=== PATIENT | male | born 1950 | race Caucasian/White ===

== ENCOUNTER 2018-06-27 07:12 | Observation (INO) | payer OTHER ==
[~2018-06-27 07:12] MED LIST: TRANEXAMIC ACID 1,000 MG in NS 100 ML IV ONE
[2018-06-27] MEDS ORDERED: ceFAZolin 2 GM/DEXTROSE 100 ML IV ONE (07:35)
[2018-06-27] MEDS ORDERED: ACETAMINOPHEN 500 MG TAB PO ONE (07:35)
[2018-06-27] MEDS ORDERED: GABAPENTIN 300 MG CAP PO ONE (07:35)
[2018-06-27] MEDS ORDERED: LR 1,000 ML IV ONE (07:36)
[2018-06-27] MEDS ORDERED: fentaNYL 250 MCG/5 ML INJ ONE (08:00)
[2018-06-27] MEDS ORDERED: PROPOFOL/EMULSION 500 MG/50 ML BOTTLE IV ONE (08:03)
[2018-06-27] MEDS ORDERED: SURGIFLO MATRIX KIT WITH THROMBIN 8 ML TP ONE (08:09)
[2018-06-27] MEDS ORDERED: BUPIVACAINE/EPI 0.5% 30 ML SDV ONE (08:10)
[2018-06-27] MEDS ORDERED: VANCOMYCIN 1 GM VIAL ONE (08:10)
[2018-06-27] MEDS ORDERED: BACITRACIN 50,000 UNITS/10 ML SYR IRR ONE (08:10)
[2018-06-27] MEDS ORDERED: MIDAZOLAM 2 MG/2 ML VIAL IVP ONE (08:11)
[2018-06-27 08:35] LABS: PLATELET COUNT 218 10^3/uL (150-400)
[2018-06-27] MEDS ORDERED: LABETALOL HCL 5 MG/ML 20 ML MDV IVP PRN (10:00)
[2018-06-27] MEDS ORDERED: ONDANSETRON 4 MG/2 ML VIAL IVP PRN ×2 (10:00→16:57)
[2018-06-27] MEDS ORDERED: DEXAMETHASONE 4 MG/ML VIAL IVP PRN (10:00)
[2018-06-27] MEDS ORDERED: ALBUTEROL 3 ML DEYVIAL IH PRN (10:00)
[2018-06-27] MEDS ORDERED: NALOXONE HCL 0.4 MG/ML INJ IVP PRN (10:00)
[2018-06-27] MEDS ORDERED: DIAZEPAM 5 MG/ML 1 ML SYR IVP PRN (10:00)
[2018-06-27] MEDS ORDERED: MEPERIDINE 25 MG/0.5 ML AMP IVP PRN (10:00)
[2018-06-27] MEDS ORDERED: HYDROmorphONE/DILAUDID 2 MG/ML INJ IVP PRN (10:00)
[2018-06-27] MEDS ORDERED: fentaNYL 100 MCG/2 ML INJ IVP PRN (10:00)
--- NOTE | 2018-06-27 10:07 | PDANEPAE ---
ANE Past Medical History - Cardiovascular History Hx Hypertension: Yes Hx Arrhythmias: No Hx Chest Pain: No Hx Coronary Artery / Peripheral Vascular Disease: Yes Hx CHF / Valvular Disease: No Hx Palpitations: No - Pulmonary History Hx COPD: No Hx Asthma/Reactive Airway Disease: No Hx Recent Upper Respiratory Infection: No Hx Oxygen in Use at Home: No Hx Sleep Apnea: No Sleep Apnea Screening Result - Last Documented: Positive - Neurologic History Hx Cerebrovascular Accident: No Hx Seizures: No Hx Dementia: No - Endocrine History Hx Diabetes: No - Renal History Hx Renal Disorders: Yes Renal History Comment: NOCTURIA - Liver History Hx Hepatic Disorders: No - Neurological & Psychiatric Hx Hx Neurological and Psychiatric Disorders: No - Cancer History Hx Cancer: No - Congenital Disorder History Hx Congenital Disorders: No - GI History Hx Gastrointestinal Disorders: No - Other Health History Other Health History: SPINAL STENOSIS. JANAY LE N/T. RT LEG WEAKNESS - Chronic Pain History Chronic Pain: Yes (LOWER LUMBAR) - Surgical History Prior Surgeries: 03/2017 LT SHLDR REPLACEMENT. RT KNEE SCOPE 2010. RT TOTAL HIP. TONSILLECTOMY. JANAY KNEE PATELLA TENDON ANE Review of Systems Review of Systems: - Exercise capacity METS (RN): 4 METS ANE Patient History - Allergies Allergies/Adverse Reactions: morphine Allergy (Verified 06/25/18 15:38) SUPRESSED RESPIRATIONS - Home Medications Home Medications: Acid Substation Electrician Supervisor HS 06/25/18 [Last Taken 1 Week Ago ~06/20/18] Lisinopril DAILY 06/25/18 [Last Taken 06/25/18] Aspirin 06/27/18 [Last Taken 1 Week Ago ~06/20/18] Multivitamins 06/27/18 [Last Taken 1 Week Ago ~06/20/18] - NPO status NPO Since - Liquids (Date): 06/26/18 NPO Since - Liquids (Time): 21:00 NPO Since - Solids (Date): 06/26/18 NPO Since - Solids (Time): 20:00 - Smoking Hx Smoking Status: Never smoked - Family Anes Hx Family Hx Anesthesia Complications: FATHER DEVELOPED DEMENTIA POST ANESTHESIA AGE 68 ANE Labs/Vital Signs - Labs Result Diagrams: 06/27/18 08:23 - Vital Signs Blood Pressure: 127/88 Heart Rate: 65 Respiratory Rate: 18 O2 Sat (%): 93 Height: 177.8 cm Weight: 79.379 kg ANE Physical Exam - Airway Neck exam: FROM Mallampati Score: Class 2 Mouth exam: normal dental/mouth exam - Pulmonary Pulmonary: no respiratory distress, clear to auscultation - Cardiovascular Cardiovascular: regular rate and rhythym, no murmur, rub, or gallop - ASA Status ASA Status: II ANE Anesthesia Plan Anesthesia Plan: general endotracheal anesthesia
[2018-06-27] MEDS ORDERED: RANITIDINE 50 MG/2 ML VIAL ONE (10:11)
[2018-06-27] MEDS ORDERED: ONDANSETRON 4 MG/2 ML VIAL ONE ×2 (10:11→13:56)
[2018-06-27] MEDS ORDERED: ePHEDrine SULFATE 25 MG/5 ML SYR ONE (10:12)
[2018-06-27] MEDS ORDERED: SUCCINYLCHOLINE CHLORIDE 200 MG/10 ML SYR IVP ONE (10:12)
[2018-06-27] MEDS ORDERED: KETOROLAC 30 MG/1 ML SDV ONE (10:24)
--- NOTE | 2018-06-27 10:45 | SUROPNOTE ---
[facility] Operative Report - Surgery Date: 06/27/18 Pre-operative Diagnosis: Lumbar Spinal Stenosis Post-operative Diagnosis: Same Procedure: Rt L2/3 Minimally Invasive Lumbar Real-laminectomy and Bilateral Decompression Use of a surgical microscope Use of intraoperative neuromonitoring, including EMG, SSEP, and MEP modalities Surgeon: Moshe Potter MD Escapement Maker: Chantale Snell CST Anesthesia: General endotracheal anesthesia Findings: As expected lumbar spinal stenosis Estimated Blood Loss: 10mL Drains: None Specimens: None Complications: None Condition: Transferred to PACU in stable condition. Implants: None Indications: This patient was seen in my office and diagnosed with lumbar spinal stenosis. I have explained all options of treatment for the patient, and the patient has elected to proceed with operative management. I have explained all risks, benefits, and alternatives of the proposed procedure. The risks that we have discussed include , blindness, nerve damage, infection, dural tear, failure of surgery to alleviate pre-operative symptoms, possible to conversion to an open decompression, and possible need for further operation. In addition to the aforementioned procedure, I also discussed with the patient that other procedures may be indicated during the course of surgery that would be considered in the patients best interest. The patient expressed understanding of this. Pre-operative: The proposed incision site was marked in the pre-operative holding area by me. The patient was then taken to the operating room in stable condition. Following smooth induction of general anesthesia, the patient was positioned prone on a Rashad table in mild reverse Trendelenburg with all down surfaces well-padded. The patient was then prepped and draped in the usual sterile fashion. Pre- operative antibiotics were administered within one hour of the incision. A surgical timeout was performed, and all parties involved in the procedure were in agreement on the correct patient, location, and procedure to be performed. Level identification: The proposed L2 and L3 levels were identified using C-arm fluoroscopy and the skin was marked for the proposed incision. Based on pre-operative templating, a spinal needle was inserted under fluoroscopic guidance to the level of the decompression to be performed, 1.5cm from midline on the patients right side. Following radiographic confirmation of proposed endoscopic trajectory, a 25mm longitudinal incision was made through both the skin and fascia in an expected trajectory. Electrocautery was used to coagulate any bleeding vessels identified above the level of the fascia. A blunt probe was then passed through the fascial incision and docked on the lateral pars of the proposed level of dissection. Serial dilation was then performed, up to a size that would accommodate placement of a Metrx decompression tube. A sterile articulating arm was then attached to the table and affixed to the tube. Proper trajectory was again confirmed by lateral radiograph. The tube was docked on the caudal aspect of the cephalad level. Decompression: A high-speed brina was used to perform a hemilaminectomy of both the level cephalad and caudal to be decompressed. A partial facetectomy was performed at this level to allow for proper decompression, involving less than one-third of the medial facet at this level. The ligamentum flavum was left intact as a buffer to protect the dura while the ventral spinal process and contralateral lamina using a high-speed brina. At this time the ligamentum flavum was elevated from the dura using blunt dissectors and resected using Kerrison rongeurs. The contralateral lateral recess and foramina were identified and decompressed in a similar fashion. A Morillo ball probe was used to ensure thorough decompression of both the exiting and traversing nerve root on both sides. At this time, a ball probe was used to probe all foraminae at the affected levels. Where necessary, a small Kerrison rongeur was used to decompress remaining bone and soft tissue so that all nerve roots would traverse freely through the foraminae. Closure: The surgical field was then copiously irrigated with sterile saline. Based on the amount of oozing and tenuous dura, a small amount of duraseal was applied to the surgical field before initiation of closure. #1 braided and absorbable interrupted sutures were used to repair the spinous processes and interspinous ligaments. There was good bony apposition noted between all repaired spinous processes. Then 2-0 interrupted sutures were used to repair the dermal layer, and a separate 3-0 monofilament suture was used to repair the subcutaneous layer in a running fashion. All sutures used were absorbable. Topical adhesive was then applied to the skin and allowed to dry. A sterile island dressing was applied over the surgical incision. A surgical count was performed before initiation of closure and following the procedure, and all were correct. I was present for all critical portions of the procedure. Surgical microscope use: A surgical microscope was utilized throughout the decompressive portion of this case. This was deemed necessary for safe and accurate surgical decompression of affected nerve roots. Neuromonitoring: EMG, SSEP, and MEP modalities were used throughout the case. There was no abnormal activity, and potentials returned to baseline as the end of the case. director of assisted living: A surgical specialist was used throughout the case, and deemed necessary for safe neural retraction, hemostasis, and suction. Recovery: The patient was extubated uneventfully in the operating room. The patient was taken to the recovery room in stable condition. Sequential compression devices for VTE prophylaxis were applied to the patients lower extremities, and were ordered to be used while the patient was non-ambulatory. Chemical VTE prophylaxis was considered to be contraindicated for this patient because of the risk of bleeding near the epidural space. Moshe Potter MD
--- NOTE | 2018-06-27 11:11 | POSTANESTH ---
Post Anesthetic Evaluation Cardiovascular Status: Normal, Stable Respiratory Status: Normal, Stable Level of Consciousness/Mental Status: Can Participate in Eval Pain Control: Adequate, Prn Tx Ordered Nausea/Vomiting Control: Adequate, Prn Tx Ordered Complications Possibly Related to Anesthesia: None Noted (Patient noted to have bitten his tongue from neuromonitoring stimulation. Bleeding stopped and no apparent airway issues.)
[2018-06-27] MEDS ORDERED: ONDANSETRON DISINTEGRATING 4 MG TAB PO PRN (16:57)
[2018-06-27] MEDS ORDERED: HYDROCODONE/APAP 5/325 TAB PO PRN (16:59)
[2018-06-27] MEDS ORDERED: NS 1,000 ML IV SCH (17:00)
[2018-06-28 07:44] VITALS: BP 112/74
--- NOTE | 2018-06-28 08:57 | GPROG ---
I saw Nicolas during my morning rounds. Overall, he is doing quite well. He states that his right leg pain has been there for years and is now completely gone. He is quite happy with the result. He has a small amount of lower back pain, but this is incisional and appropriate. We will discharge the patient today. Of note, he is having some low O2 saturations still for which I informed the patient to see his medical doctor. I will make sure he does well with physical therapy before being discharged. /[id number]/MODL
[2018-06-28] MEDS ORDERED: LISINOPRIL 5 MG TAB PO SCH (09:00)
--- NOTE | 2018-06-28 09:02 | GDS ---
Nicolas underwent an uneventful L2-3 minimally invasive decompression on 06/27/2018. He did quite well from this. He states that the right leg pain that has been there for several years was now completel y gone and he is able to walk, ambulate, and rest pain free. He was observed overnight for nausea an d vomiting, as well as low oxygen saturation. On postoperative day 1, he was subsequently cleared for discharge after having improved in all the af orementioned areas. He is still having some decreased oxygen saturation. This is acceptable and he will see his medical doctor for this as an outpatient. INSTRUCTIONS: The patient has been given a full 32-page postoperative instruction packet and will fo llow these. He should overall not bend, lift, or twist the back over the next 6 weeks. He has been given narcotic pain medicine and has my cell phone if he has any further questions. /[id number]/MODL
[2018-06-28] MEDS ORDERED: ACETAMINOPHEN 325 MG TAB PO PRN (10:20)
== END 2018-06-28 11:42 | disposition home or self-care (01) ==
LOC: FSGY 07:12 → F3N 15:00
PROVIDERS: ADMIT Orthopaedic Surgery Orthopaedic Surgery of the Spine; ATTEND Orthopaedic Surgery Orthopaedic Surgery of the Spine
DX: J95.89 Other postprocedural complications and disorders of respiratory system, not elsewhere classified (principal); M48.061 Spinal stenosis, lumbar region without neurogenic claudication; Z23 Encounter for immunization; Z96.641 Presence of right artificial hip joint
CPT/HCPCS: 63030; 76001; 90686; G0008; J0330; J0690; J1885; J2250; J2405; J2704; J2780; J3010; J3370

== ENCOUNTER 2018-10-23 05:44 | Inpatient (IN) | payer OTHER ==
[2018-10-23] MEDS ORDERED: GABAPENTIN 300 MG CAP PO ONE (05:56)
[2018-10-23] MEDS ORDERED: FAMOTIDINE 20 MG TAB PO ONE (05:56)
[2018-10-23] MEDS ORDERED: ceFAZolin 2 GM/DEXTROSE 100 ML IV ONE (05:56)
[2018-10-23] MEDS ORDERED: ACETAMINOPHEN 325 MG TAB PO ONE (05:56)
[2018-10-23] MEDS ORDERED: ONDANSETRON 4 MG/2 ML VIAL IVP ONE (05:56)
[2018-10-23] MEDS ORDERED: LR 1,000 ML IV ONE (05:56)
[2018-10-23] MEDS ORDERED: LIDOCAINE 1% 2 ML INJ ID PRN (05:56)
[2018-10-23] MEDS ORDERED: DEXAMETHASONE 4 MG/ML VIAL IVP ONE (05:56)
[2018-10-23] MEDS ORDERED: TRANEXAMIC ACID 3,000 MG/50 ML BAG IRR ONE (06:38)
[2018-10-23] MEDS ORDERED: ceFAZolin 1 GM/5 ML SYR ONE (06:39)
--- NOTE | 2018-10-23 06:59 | PDANEPAE ---
ANE Past Medical History - Cardiovascular History Hx Hypertension: Yes Hx Arrhythmias: No Hx Chest Pain: No Hx Coronary Artery / Peripheral Vascular Disease: Yes Hx CHF / Valvular Disease: No Hx Palpitations: No - Pulmonary History Hx COPD: No Hx Asthma/Reactive Airway Disease: No Hx Recent Upper Respiratory Infection: No Hx Oxygen in Use at Home: No Hx Sleep Apnea: No Sleep Apnea Screening Result - Last Documented: Positive - Neurologic History Hx Cerebrovascular Accident: No Hx Seizures: No Hx Dementia: No - Endocrine History Hx Diabetes: No Hypothyroid: No Hyperthyroid: No Obesity: no - Renal History Hx Renal Disorders: No Renal History Comment: NOCTURIA - Liver History Hx Hepatic Disorders: No - Neurological & Psychiatric Hx Hx Neurological and Psychiatric Disorders: Yes Neurological / Psychiatric History Comment: numbness right leg - Cancer History Hx Cancer: No - Congenital Disorder History Hx Congenital Disorders: No - GI History GERD: mild Hx Gastrointestinal Disorders: Yes Gastrointestinal History Comment: acid reflux, micrscopic colitis - Other Health History Other Health History: SPINAL STENOSIS. JANAY LE N/T. RT LEG WEAKNESS. SCOLIOSIS - Chronic Pain History Chronic Pain: Yes (severe stenotic spine) - Surgical History Prior Surgeries: 03/2017 LT SHLDR REPLACEMENT. RT KNEE SCOPE 2010. RT TOTAL HIP. TONSILLECTOMY. JANAY KNEE PATELLA TENDON. L 2/3 slumbar stenosis repair ANE Review of Systems Review of Systems: - Exercise capacity Exercise capacity: >=4 METS, limited by disability METS (RN): 4 METS - Systems Cardiac: Reports: no symptoms Respiratory: Reports: no symptoms Muscolosketal: Reports: joint pain ANE Patient History - Allergies Allergies/Adverse Reactions: morphine Allergy (Verified 10/18/18 10:54) SUPRESSED RESPIRATIONS - Home Medications Home Medications: Lisinopril [Zestril 5 mg (*)] 5 mg PO DAILY 06/27/18 [Last Taken 10/22/18 21:00] Naproxen Sodium [Aleve 220 MG (*)] 440 mg PO BIDMEAL 06/27/18 [Last Taken ] Brinklow-3 Fatty Acids [Fish Oil 1000 mg (*)] 1,000 mg PO EVERY OTHER DAY 06/27/18 [Last Taken 10/16/18] Acetaminophen [Tylenol Arthritis] 650 - 1,300 mg PO TID 10/11/18 [Last Taken 14:00] Budesonide [Entocort EC] 9 mg PO DAILY 10/11/18 [Last Taken 10/22/18 08:00] Cholecalciferol Vit D3 [Vitamin D3] 400 units PO DAILY 10/11/18 [Last Taken 06/26] Glucosamine Sulfate [Glucosamine Sulfate 500 MG (*)] 1,500 mg PO DAILY 10/11/18 [Last Taken 10/16/18] Multivitamins [Multivitamin (*)] 1 each PO Q2D 10/11/18 [Last Taken 10/16/18] Vitamin B Complex [Vitamin B Complex (OTC)] 1 each PO Q2D 10/11/18 [Last Taken 10/16/18] - Anes Hx Anes Hx: post operative nausea and vomiting Hx Anesthesia Complications (with details): N/V after spine surgery - Smoking Hx Smoking Status: Never smoked - Alcohol Use Alcohol Use: Rarely - Family Anes Hx Family Anes Hx: neg - N/A Family Hx Anesthesia Complications: FATHER DEVELOPED DEMENTIA POST ANESTHESIA AGE 68 ANE Labs/Vital Signs - Vital Signs Height: 177.8 cm Weight: 74.843 kg ANE Physical Exam - Airway Neck exam: decreased ROM Mallampati Score: Class 2 Mouth exam: normal dental/mouth exam - Pulmonary Pulmonary: no respiratory distress, no rales or rhonchi, clear to auscultation - Cardiovascular Cardiovascular: regular rate and rhythym, no murmur, rub, or gallop - ASA Status ASA Status: II ANE Anesthesia Plan Anesthesia Plan: MAC, spinal Total IV Anesthesia: No
[2018-10-23] MEDS ORDERED: MIDAZOLAM 2 MG/2 ML VIAL ONE (07:03)
--- NOTE | 2018-10-23 07:04 | PDHPUP ---
History & Physical Update H&P update statement: This history and physical update is based on an assessment of the patient which was completed after admission or registration (within 24 hours), but prior to the surgery/procedure. H&P update: H&P reviewed & patient examined
[2018-10-23] MEDS ORDERED: TRANEXAMIC ACID 1,000 MG in NS 100 ML IV ONE (07:15)
[2018-10-23] MEDS ORDERED: PROPOFOL/EMULSION 500 MG/50 ML BOTTLE IV ONE (07:15)
[2018-10-23] MEDS ORDERED: ROPIVACAINE 0.2% 80 MG, EPINEPHrine 0.2 MG, KETOROLAC TROMETHAMINE 30 MG in SYRINGE 0 ML IU ONE (07:15)
[2018-10-23] MEDS ORDERED: fentaNYL 100 MCG/2 ML INJ ONE (07:15)
[2018-10-23] MEDS ORDERED: TRANEXAMIC ACID 3,000 MG in NS (SYRINGE) 50 ML IRR ONE (07:15)
[2018-10-23] MEDS ORDERED: BUPIVACAINE/DEXTROSE 7.5MG/ML 2 ML SPINAL AMP SP ONE (07:17)
[2018-10-23] MEDS ORDERED: ePHEDrine SULFATE 25 MG/5 ML SYR ONE ×2 (07:37→07:50)
[2018-10-23] MEDS ORDERED: POVIDONE-IODINE 20 ML in SODIUM CL IRRIG SOLUTION 500 ML IRR ONE (08:00)
[2018-10-23] MEDS ORDERED: PHENYLEPHRINE HCL 100 MCG/ML SYR ONE (08:04)
[2018-10-23] MEDS ORDERED: LR 500 ML IV PRN (08:10)
[2018-10-23] MEDS ORDERED: PROMETHAZINE HCL 25 MG/ML INJ IVP PRN ×2 (08:10→08:58)
[2018-10-23] MEDS ORDERED: PHENYLEPHRINE HCL 100 MCG/ML SYR IVP PRN (08:10)
[2018-10-23] MEDS ORDERED: ONDANSETRON 4 MG/2 ML VIAL IVP PRN ×2 (08:10→08:58)
[2018-10-23] MEDS ORDERED: NALOXONE HCL 0.4 MG/ML INJ IVP PRN (08:10)
[2018-10-23] MEDS ORDERED: MIDAZOLAM 2 MG/2 ML VIAL IVP ONE (08:11)
--- NOTE | 2018-10-23 08:54 | POSTOPPROG ---
Post Op Note Date of Operation: 10/23/18 Surgeon: Christopher Hernandez Manager Research Development: Kaden Anesthesiologist: Roselia Anesthesia: IV Sedation, Spinal Post-op Diagnosis: Right hip severe degenerative arthritis Procedure: Right total hip arthroplasty Inf/Abcess present in the surg proc area at time of surgery?: No EBL: [id number]
[2018-10-23] MEDS ORDERED: NS 500 ML IV PRN (08:58)
[2018-10-23] MEDS ORDERED: TEMAZEPAM 15 MG CAP PO PRN (08:58)
[2018-10-23] MEDS ORDERED: diphenhydrAMINE 25 MG CAP PO PRN (08:58)
[2018-10-23] MEDS ORDERED: MAGNESIUM HYDROXIDE 30 ML UDCUP PO PRN (08:58)
[2018-10-23] MEDS ORDERED: ONDANSETRON DISINTEGRATING 4 MG TAB PO PRN (08:58)
[2018-10-23] MEDS ORDERED: oxyCODONE IR 5 MG TAB PO PRN (08:58)
[2018-10-23] MEDS ORDERED: traMADol 50 MG TAB PO PRN (08:58)
[2018-10-23] MEDS ORDERED: PROMETHAZINE HCL 25 MG SUPPR PR PRN (08:58)
[2018-10-23] MEDS ORDERED: DIPHENOXYLATE/ATROPINE LOMOTIL 1 TAB PO PRN (08:58)
[2018-10-23] MEDS ORDERED: BISACODYL 10 MG SUPP PR PRN (08:58)
[2018-10-23] MEDS ORDERED: POLYETHYLENE GLYCOL 3350 17 GM PKT PO PRN (08:58)
[2018-10-23] MEDS ORDERED: METOCLOPRAMIDE 10 MG/2 ML VIAL IVP PRN (08:58)
[2018-10-23] MEDS ORDERED: LACTULOSE 20 GM/30 ML UDCUP PO PRN (08:58)
[2018-10-23] MEDS ORDERED: LR 1,000 ML IV SCH (09:00)
--- NOTE | 2018-10-23 10:44 | POSTANESTH ---
Post Anesthetic Evaluation Cardiovascular Status: Normal, Stable Respiratory Status: Normal, Stable Level of Consciousness/Mental Status: Can Participate in Eval Pain Control: Adequate, Prn Tx Ordered Nausea/Vomiting Control: Adequate, Prn Tx Ordered Complications Possibly Related to Anesthesia: None Noted
--- NOTE | 2018-10-23 10:57 | PDMN ---
Medical Necessity Medical necessity: [facility] [place] S560 Hip Arthroplasty, A-2days: 68 y/o s/p R GABY, JOY IP only
--- NOTE | 2018-10-23 12:12 | GOP ---
DATE OF OPERATION: 10/23/2018 SURGEON: Christopher Hernandez MD ART HANDLER: Amadeo Bishop and Presley Calderon. ANESTHESIA: Combination of Marcaine, spinal, and IV sedation. ANESTHESIOLOGIST: Mansoor Veloz DO. PREOPERATIVE DIAGNOSIS: Right hip severe degenerative arthritis. POSTOPERATIVE DIAGNOSIS: Right hip severe degenerative arthritis. PROCEDURE PERFORMED: 10/23/2018, right total hip arthroplasty, ceramic femoral head on highly cross- linked polyethylene cup liner. FINDINGS: ESTIMATED BLOOD LOSS: About 300 mL. DESCRIPTION OF PROCEDURE: The patient was given 2 g of IV Ancef preoperatively within 60 minutes of surgery. He also received 1000 mg of IV tranexamic acid. He was placed on the operating room table and given spinal anesthesia with Marcaine by Dr. Veloz. He was then placed supine and given IV sedation. A Li catheter was not inserted. He wore a JIMENA stocking and SCD on the nonoperative le g. He was rolled to the left lateral decubitus position. The position was secured with the pegboard table attachment. An axillary roll was used, and all pressure points were carefully padded. I was careful to lock his pelvis in a vertical position. His perineum was isolated with plastic adhesive d rapes. His right hip and right lower extremity were prepped with ChloraPrep. They were draped free using sterile sheets, stockinette, and Ioban plastic drapes. The [employer] Organization time-out was performed to verify the correct patient identity and the c orrect surgical side and site. The [place] time-out was also performed. I made a 5-inch straight oblique posterolateral hip skin incision. Subcutaneous tissues were sharply divided and hemostasis was obtained using electrocautery. He was very thin and had a thin layer of subcutaneous fat. The fascia ellen was identified and split distally along the axis of its fibers. I then curved posteriorly and proximally, and split the fascia of the gluteus albert and bluntly spli t the muscle fibers in line with their orientation. The Charnley self-retaining retractor was insert ed. His sciatic nerve was located, partially exposed, and protected throughout the procedure. The e xternal rotators and the posterior hip capsule were divided as separate layers at the base of the fem oral neck, tagged, and reflected posteriorly. A smooth 8-inch Steinmann pin was inserted vertically into the ilium, superior to the acetabulum. An 8-inch drill bit was inserted vertically into the gre ater trochanter and parallel to the first pin. The distance between the 2 was measured for leg lengt h reference. His femoral head was dislocated posteriorly. Severe degenerative changes were present. The femoral neck was osteotomized at the appropriate level and inclination. I was careful to preserve all the posterior capsule and most of the anterior capsule. The remnant of his damaged labrum was excised. The femur was prepared first. This allowed me to drill rig operator the amount of natural femoral neck anteversio n. This, in turn, allowed me to later determine the correct amount of cup anteversion. He had appro ximately 10 degrees of natural femoral neck anteversion. The canal was opened laterally with a box c hisel. I broached sequentially up to size 4. I used a Arya Accolade II stem in a size 4 broach a s a trial stem. I was careful to lateralize adequately. Appropriate retractors were inserted to expose the acetabulum. The acetabulum was reamed sequentiall y up to size 52. I selected a 52 mm Loretto Tritanium Trident II cluster hole hemispherical shell. This tapped securely into place in the proper degree of inclination anteversion. I used the transver se acetabular ligament and other acetabular bony landmarks to help me properly orient the cup. I performed a series of trial reductions to determine length and stability. I obtained intraoperativ e cross-table AP pelvis x-ray. I concluded that the size 4 high offset stem with a 0 neck and a 36 m m head with a 0 degree liner gave me the proper combination of appropriate length and good anterior a nd posterior stability. He was a few mm short preoperatively, and I was intentionally lengthening hi m. I also repositioned the cup based on the x-ray to make it a little more vertical. The 0 degree Loretto X3 highly cross-linked polyethylene liner was inserted and tapped securely into place. The Arya Accolade II stem in a size 4 with high offset was inserted press-fit and was very tight. I did 1 final trial reduction and confirmed that the 0 neck length with a 36 mm head was the proper combination. The Loretto Biolox Delta ceramic head with an outside diameter of 36 mm and a n dimas length of 0 mm was tapped securely onto the clean trunnion. His acetabulum was irrigated and mellissa aned, and the hip was reduced 1 final time. He had excellent anterior and posterior stability and ap propriate length. 40 mL of the joint anesthetic cocktail were injected into the capsule, the deep musculature, and subc utaneous tissues around the skin edges. The joint was thoroughly irrigated 1 final time with a dilut e Betadine solution. 50 mL of the tranexamic acid solution were irrigated into the wound and left in place. His sciatic nerve was reinspected and looked unharmed. The external rotators and the posterior hip capsule were repaired in separate layers with #2 FiberWir e sutures through drill holes in the greater trochanter. The fascia ellen was closed first with 2 fig [id number] #2 FiberWire sutures followed by a running #2 barbed Ethicon Stratafix PDO suture. Subc utaneous tissues were closed in layers with interrupted 2-0 Monocryl sutures followed by a running 0 barbed Ethicon Stratafix Monoderm suture. The skin was closed with a running 3-0 barbed Ethicon Stra tafix Monoderm subcuticular suture. The skin edges were reapproximated and sealed with Dermabond glu e. The wound was covered with a large piece of water proof Mepilex surgical dressing. The sacral Me pilex dressing was also applied. A long-leg JIMENA stocking and SCD were applied to his right lower extremity. He wore a stocking and SC D on the opposite leg during the procedure. An abduction pillow was placed between his knees. He wa s awakened from anesthesia and rolled to the supine position on his [facility]. He was taken to PACU in satisfactory condition. There were no recognized intraoperative complications. COUNTS: The sponge and needle counts were correct on 2 occasions. I used a Arya Tritanium Trident II hemispherical cluster hole shell with an outside diameter of 52 mm. The liner was a Arya X3 0-degree highly cross-linked liner with an inside diameter of 36 mm. The femoral component was a press-fit Loretto high offset Accolade II stem in size 4. The femoral head was a Arya Biolox Delta ceramic head with a 0 neck length and a 36 mm outside diameter. Amadeo Bishop and Presley Light acted as surgical assistants. Their assistance was a medical necessi ty for safe completion of the procedure. Copy requested to: dr. Juana Ring [place] /[id number]/MODL
[2018-10-23] MEDS: KETOROLAC 15 MG/1 ML SDV IVP SCH ×3 (12:32→23:09)
[2018-10-23] MEDS: ACETAMINOPHEN 325 MG TAB PO SCH ×3 (12:32→23:09)
[2018-10-23] MEDS: LISINOPRIL 5 MG TAB PO SCH ×2 (12:33→20:46)
[2018-10-23] MEDS: BUDESONIDE 3 MG EC CAP PO SCH (12:33)
[2018-10-23] MEDS: SENNOSIDES/DOCUSATE SODIUM TAB PO SCH ×2 (12:34→20:42)
[2018-10-23] MEDS: ceFAZolin 2 GM/DEXTROSE 100 ML IV SCH ×2 (15:51→23:10)
[2018-10-23] MEDS: FAMOTIDINE 20 MG TAB PO SCH (20:42)
[2018-10-23] MEDS: ASPIRIN 325 MG TAB PO SCH (20:42)
[2018-10-23] MEDS: CYCLOBENZAPRINE 10 MG TAB PO PRN (23:09)
[2018-10-24] MEDS: KETOROLAC 15 MG/1 ML SDV IVP SCH (05:23)
[2018-10-24] MEDS: ACETAMINOPHEN 325 MG TAB PO SCH ×2 (05:24→11:40)
--- NOTE | 2018-10-24 07:23 | SOAPPROG ---
SOAP Progress Note Assessment/Plan: Assessment: Awake and alert. Afebrile. Mild pain. He has been up and walking in the porter. Voiding spontaneously. Postoperative H&H are good. Postop films look excellent. Sciatic nerve intact. Plan: Continue physical therapy today for stairs. Discharge later today. He does not want any formal postoperative physical therapy. He will just exercise on his own. 10/24/18 07:21 Objective: Vital Signs Temp Pulse Resp BP Pulse Ox 36.3 C 63 16 112/64 97 10/24/18 04:00 10/24/18 04:00 10/24/18 04:00 10/24/18 04:00 10/24/18 04:00 Laboratory Results 10/24/18 04:42 10/23/18 10/24/18 10/25/18 05:59 05:59 05:59 Intake Total 410 Output Total 1825 Balance -1415 ICD10 Worksheet Patient Problems: Problems Problem Status Onset Osteoarthritis of right hip Acute Lumbar back pain Acute
--- NOTE | 2018-10-24 07:49 | GDS ---
ADMISSION DIAGNOSIS: Right hip severe degenerative arthritis. DISCHARGE DIAGNOSIS: Right hip severe degenerative arthritis. OPERATION PERFORMED: 10/23/2018: Right total hip arthroplasty. POSTOPERATIVE COMPLICATIONS: None. CONDITION ON DISCHARGE: Improved. DESCRIPTION OF HOSPITAL COURSE: The patient was admitted to the hospital on the morning of surgery. The same day, under a combination of Marcaine, spinal, and IV sedation, he underwent a right total h ip arthroplasty. Postoperatively, he was treated with multimodal DVT prophylaxis, including aspirin. On the first postoperative day, his hemoglobin and hematocrit were 12.5 and 36.4. [facility] and made good progress with ambulation and stairs. By the time of discharge, he was afebrile and was independent walking with a walker. DISPOSITION: The patient is discharged to a friend's home in [place]. He may progress to full we ightbearing on the right as tolerated. Continue aspirin 325 mg p.o. daily for 21 days. Continue JIMENA stockings for 1 week. Use an abduction pillow in bed for 3 weeks. He has prescriptions for oxycodo ne, tramadol, and Celebrex for pain control. I will see him back in the office on November 14, 2018. If there any problems, he is to call me at the office. Copy requested to: Dr. Amrit Ring, [place] /[id number]/MODL
[2018-10-24] MEDS ORDERED: FERROUS SULFATE 325 MG TAB PO SCH (08:00)
[2018-10-24] MEDS: LISINOPRIL 5 MG TAB PO SCH (09:46)
[2018-10-24] MEDS: SENNOSIDES/DOCUSATE SODIUM TAB PO SCH (09:46)
[2018-10-24] MEDS: FAMOTIDINE 20 MG TAB PO SCH (09:46)
[2018-10-24] MEDS: CYCLOBENZAPRINE 10 MG TAB PO PRN (09:47)
[2018-10-24] MEDS: ASPIRIN 325 MG TAB PO SCH (09:47)
[2018-10-24] MEDS: BUDESONIDE 3 MG EC CAP PO SCH (10:07)
[2018-10-24 12:35] VITALS: BP 106/67
--- NOTE | 2018-10-24 14:29 | PDIAF ---
- Diagnosis Diagnosis: L hip OA Code Status: Full Code - Medication Management Discharge Medications: electronically signed and located in the Home Medication List. - Orders Services needed: Home Care, Physical Therapy Home Care Face to Face: I certify that this patient was under my care and that I had the required [id number] encounter meeting the encounter requirements on the discharge day. My findings support the fact that the patient is homebound as defined in Home Care Face to Face Continued: CMS Chapter 7 Medicare Benefits Manual 30.1.1 , The condition of the patient is such that there exists a normal inability to leave home and consequently, leaving home would require a considerable and taxing effort. Diet Recommendation: no restrictions on diet Diet Texture: Regular Texture Diet Li: Not applicable Wound Care Instructions: keep clean and dry. You may shower Activity/Weight Bearing Restrictions: as tolerated. - Follow Up Care Current Providers and Referrals: Amrit Arias MD [Primary Care Provider] - Christopher Hernandez MD [Family Provider] - 11/14/18
--- NOTE | 2018-10-24 14:41 | ASMTLACE ---
LACE Length of stay for Answers: 2 days current admission Acuity / Level of Answers: Yes Care: Did the patient have an inpatient admission? Comorbidities - select Answers: Coronary Artery Disease all that apply Opioid dependence / Chronic pain Other Notes: HTN; Spinal stenosis # of Emergency department Answers: 0 visits in the last 6 months Score: 12 Date Signed: 10/24/2018 02:41 PM Electronically Signed By:GERSON Manzanares
--- NOTE | 2018-10-24 14:45 | ASMTCMCOM ---
CM Note CM Note Notes: Pt had planned OA of hip. Pt resides alone in [place], home has no running water and fireplace heat. Pt to d/c to friend Nicolas's home [address] [place] [address] phone is [phone]. PT/OT rec [facility]. Pt medically stable for d/c with [facility] PT. Orders to be obtained via [facility], [facility] Lulu provided pt d/c address/phone info. Date Signed: 10/24/2018 02:45 PM Electronically Signed By:GERSON Manzanares
--- NOTE | 2018-10-24 16:26 | ASDISCHSUM ---
Discharge Information Plan Status:Home with Home Health Medically Cleared to Leave: Discharge Date:10/24/2018 02:37 PM CM D/C Disposition: ADT D/C Disposition:Home Health Service Projected Discharge Date:10/24/2018 11:00 AM Transportation at D/C: Discharge Delay Reason: Follow-Up Date:10/24/2018 11:00 AM Discharge Slot: Final Diagnosis: Placement Information Referral Type:*Home Health Care Services Referral ID:[facility]-[id number] Provider Name:[facility] Care Address 1:[address] Address 2: City:[place] Selection [place]: State:[place] Patient Contact Information Contact Name:MANUELA Relationship: Address:[address] Work Phone: City:[place] [facility] Phone: State/Zip Code:[place] [address] Email: Financial Information Financial Class:Medicare Primary Plan Desc:MEDICARE INPATIENT Primary Plan Number:[id number] Secondary Plan Desc:[employer] Secondary Plan Number:[id number] Assessment Information LACE LACE Length of stay for Answers: 2 days current admission Acuity / Level of Answers: Yes Care: Did the patient have an inpatient admission? Comorbidities - select Answers: Coronary Artery Disease all that apply Opioid dependence / Chronic pain Other Notes: HTN; Spinal stenosis # of Emergency department Answers: 0 visits in the last 6 months Score: 12 Date Signed: 10/24/2018 02:41 PM Electronically Signed By:GERSON Manzanares RUTHY CM Progress Note CM Note CM Note Notes: Pt had planned OA of hip. Pt resides alone in [place], home has no running water and fireplace heat. Pt to d/c to friend Nicolas's home [address] [address] phone is [phone]. PT/OT rec [facility]. Pt medically stable for d/c with [facility] PT. Orders to be obtained via [facility], [facility] Lulu provided pt d/c address/phone info. Date Signed: 10/24/2018 02:45 PM Electronically Signed By:GERSON Manzanares Intervention Information
== END 2018-10-24 14:37 | disposition home health service (06) | DRG 470 ==
LOC: F3E 05:44 → F3N 11:52
PROVIDERS: ADMIT Orthopaedic Surgery; ATTEND Orthopaedic Surgery
PROC: 0SR904A Replacement of Right Hip Joint with Ceramic on Polyethylene Synthetic Substitute, Uncemented, Open Approach (ICD-10-PCS; principal; 2018-10-23 07:15)
DX: M16.11 Unilateral primary osteoarthritis, right hip (principal); I10 Essential (primary) hypertension; G47.30 Sleep apnea, unspecified; R35.1 Nocturia; K21.9 Gastro-esophageal reflux disease without esophagitis; Z96.612 Presence of left artificial shoulder joint; I25.10 Atherosclerotic heart disease of native coronary artery without angina pectoris
CPT/HCPCS: 97110-GP; 97116-GP; 97161-GP; 97165-GO; 97535-GO; J0171; J0690; J1100; J1885; J2250; J2370; J2405; J2704; J2795; J3010

== ENCOUNTER → 2019-01-09 | Outpatient (CLI) | payer OTHER ==
[~2019-01-09] MED LIST changes: +GADOBUTROL 10 ML VIAL IVP ONE; -TRANEXAMIC ACID 1,000 MG in NS 100 ML IV ONE
== END ==
LOC: FIMAGING 14:26
PROVIDERS: ATTEND Physical Medicine & Rehabilitation Pain Medicine
DX: M54.16 Radiculopathy, lumbar region (principal); M48.061 Spinal stenosis, lumbar region without neurogenic claudication; M41.9 Scoliosis, unspecified; Z98.890 Other specified postprocedural states
CPT/HCPCS: 72158; A9585